=== PATIENT | female | born 1965 | race African-American/Black ===

== ENCOUNTER 2018-02-28 11:15 | Emergency (ER) | payer MEDICAID ==
[~2018-02-28] VITALS: Ht 160 cm; Wt 55.0 kg
[2018-02-28] MEDS ORDERED: KETOROLAC 60MG/2ML VIAL IM ONE (13:15)
[2018-02-28] MEDS ORDERED: CYCLOBENZAPRINE 10MG TABLET PO ONE (13:15)
[2018-02-28 13:26] VITALS: BP 129/75
== END 2018-02-28 14:24 | disposition home or self-care (01) ==
LOC: ER 11:15
DX: M54.9 Dorsalgia, unspecified (principal); M79.602 Pain in left arm; M79.601 Pain in right arm; F12.10 Cannabis abuse, uncomplicated; Y08.89XA Assault by other specified means, initial encounter; Y93.89 Activity, other specified; Y92.89 Other specified places as the place of occurrence of the external cause; Y99.8 Other external cause status
CPT/HCPCS: 96372; 99283; J1885

== ENCOUNTER 2020-03-18 21:49 | Emergency (ER) | payer MEDICAID, OTHER ==
[~2020-03-18] VITALS: Ht 167.6 cm; Wt 54.0 kg
[2020-03-18] MEDS ORDERED: HYDROCODONE/ACETAMINOPHEN 5/325MG TABLET PO STA (23:19)
[2020-03-19] MEDS ORDERED: IBUPROFEN 600MG TABLET PO SCH (01:45)
[2020-03-19 01:57] VITALS: BP 128/74
== END 2020-03-19 02:02 | disposition home or self-care (01) ==
LOC: ER 21:49
DX: M25.511 Pain in right shoulder (principal); S40.211A Abrasion of right shoulder, initial encounter; R51 Headache; M54.2 Cervicalgia; V43.62XA Car passenger injured in collision with other type car in traffic accident, initial encounter; Y93.9 Activity, unspecified; Y92.410 Unspecified street and highway as the place of occurrence of the external cause
CPT/HCPCS: 73030; 99285